=== PATIENT | female | born 1995 | race Caucasian/White ===

== ENCOUNTER 2024-03-30 20:42 | Emergency (ER) | payer OTHER ==
[~2024-03-30] VITALS: Ht 170.2 cm; Wt 81.6 kg
[2024-03-30] MEDS ORDERED: GUAI5SYR PO (22:15)
[2024-03-30] MEDS ORDERED: ONDA4TAB5 PO (22:15)
[2024-03-30 22:23] VITALS: BP 120/62; TEMP 98.6; O2SAT 96
== END 2024-03-30 22:23 | disposition home or self-care (01) ==
LOC: ER 20:45
DX: J06.9 Acute upper respiratory infection, unspecified (principal); Z98.890 Other specified postprocedural states; Z20.822 Contact with and (suspected) exposure to COVID-19; Z88.5 Allergy status to narcotic agent
CPT/HCPCS: 86403-TC; 87070-TC